=== PATIENT | male | born 1990 | race Caucasian/White ===

== ENCOUNTER 2017-07-08 12:43 | Day surgery (SDC) | payer OTHER ==
[2017-07-08] MEDS ORDERED: DIPHENHYDRAMINE 50 MG INJ (15:43)
[2017-07-08] MEDS ORDERED: MIDAZOLAM 1 MG/ML 2 ML INJ ×3 (16:36)
[2017-07-08] MEDS ORDERED: FENTAnyl 50 MCG/ML VIAL (16:38)
== END 2017-07-08 16:59 | disposition home or self-care (01) ==
LOC: GIL 12:43
DX: K29.50 Unspecified chronic gastritis without bleeding (principal)
CPT/HCPCS: 43239; 88305; 88312